=== PATIENT | male | born 1975 | race Two or more races ===

== ENCOUNTER 2019-09-10 18:38 | Emergency (ER) | payer OTHER ==
[~2019-09-10] VITALS: Ht 175.3 cm; Wt 90.9 kg
[2019-09-10] MEDS ORDERED: LIDOCAINE 2% VISCOUS 15 ML SOLUTION UDCUP TP ONE (19:00)
[2019-09-10 19:41] VITALS: BP 151/90
[2019-09-10] MEDS ORDERED: ACETAMINOPHEN 325 MG TABLET PO ONE (19:45)
[2019-09-10] MEDS ORDERED: BACITRACIN 0.9 GM PACKET OINTMENT TP ONE (20:45)
== END 2019-09-10 21:02 | disposition home or self-care (01) ==
LOC: EMS 18:42
DX: S01.91XA Laceration without foreign body of unspecified part of head, initial encounter (principal); F12.90 Cannabis use, unspecified, uncomplicated; Y04.0XXA Assault by unarmed brawl or fight, initial encounter; Y93.89 Activity, other specified; Y92.096 Garden or yard of other non-institutional residence as the place of occurrence of the external cause; Y99.8 Other external cause status
CPT/HCPCS: 12002; 70450

== ENCOUNTER 2019-09-19 12:29 | Emergency (ER) | payer OTHER ==
[~2019-09-19] VITALS: Ht 175.3 cm; Wt 90.9 kg
[2019-09-19 13:43] VITALS: BP 141/79
== END 2019-09-19 13:52 | disposition home or self-care (01) ==
LOC: EMS 12:31
DX: S01.01XD Laceration without foreign body of scalp, subsequent encounter (principal); F12.90 Cannabis use, unspecified, uncomplicated; Z48.02 Encounter for removal of sutures; X58.XXXD Exposure to other specified factors, subsequent encounter

== ENCOUNTER 2019-10-07 19:18 | Emergency (ER) | payer SELFPAY ==
[~2019-10-07] VITALS: Ht 175.3 cm; Wt 84.1 kg
[2019-10-07] MEDS ORDERED: ACETAMINOPHEN 500 MG TABLET PO ONE (20:30)
[2019-10-07] MEDS ORDERED: LIDOCAINE 5% TRANSDERMAL PATCH TD ONE (20:30)
[2019-10-07 21:42] VITALS: BP 142/90
== END 2019-10-07 22:09 | disposition home or self-care (01) ==
LOC: EMS 19:18
DX: S16.1XXA Strain of muscle, fascia and tendon at neck level, initial encounter (principal); M48.02 Spinal stenosis, cervical region; M50.20 Other cervical disc displacement, unspecified cervical region; F12.90 Cannabis use, unspecified, uncomplicated; V49.9XXA Car occupant (driver) (passenger) injured in unspecified traffic accident, initial encounter; Y93.89 Activity, other specified; Y92.89 Other specified places as the place of occurrence of the external cause; Y99.8 Other external cause status
CPT/HCPCS: 72125

== ENCOUNTER 2020-07-22 10:28 | Emergency (ER) | payer SELFPAY ==
[~2020-07-22] VITALS: Ht 175.3 cm; Wt 100.0 kg
[2020-07-22 10:41] VITALS: BP 125/75
== END 2020-07-22 11:00 | disposition left against medical advice (07) ==
LOC: EMS 10:28
DX: R07.81 Pleurodynia (principal); F12.90 Cannabis use, unspecified, uncomplicated; F17.210 Nicotine dependence, cigarettes, uncomplicated
CPT/HCPCS: Z7502